=== PATIENT | female | born 1945 | race Caucasian/White ===

== ENCOUNTER 2024-08-06 12:18 | Inpatient (IN) | payer MEDICARE ==
[~2024-08-06] VITALS: Ht 167.6 cm; Wt 66.1 kg
[~2024-08-06 12:18] MED LIST: ATOR1TAB19 PO; ECOT81TA5 PO; METO25TA4 PO
[2024-08-06] MEDS ORDERED: BISACODYL 10 MG SUPP PR PRN (14:25)
[2024-08-06] MEDS ORDERED: MOM 30 ML SUSPENSION UDC PO PRN (14:25)
[2024-08-06] MEDS ORDERED: MAALOX 30 ML SUSP *UDC PO PRN (14:25)
[2024-08-06] MEDS ORDERED: SIMETHICONE 80MG CHEW TAB PO PRN (14:25)
[2024-08-06 15:48] VITALS: BP 137/82; TEMP 96.8; O2SAT 97
[2024-08-06 20:00] VITALS: BP 135/60; TEMP 98.6; O2SAT 80
[2024-08-06] MEDS: SENNOSIDES/DOCUSATE SODIUM 8.6 MG/50MG TAB PO SCH (21:00)
[2024-08-06] MEDS: ACETAMINOPHEN 500 MG TAB PO SCH (21:39)
[2024-08-07 03:15] VITALS: BP 148/67; TEMP 97.8; O2SAT 95
[2024-08-07 07:08] LABS: BASO # 0.0 10^3/uL (0.0-0.2); BASO % 0.1 % (0.0-1.0); EOS # 0.0 10^3/uL (0.0-0.5); EOS % 0.1 % (0.0-3.0); LYMPH # 1.3 10^3/uL (1.5-5.0); LYMPH % 13.0 % (24.0-44.0); MONO # 1.1 10^3/uL (0.0-0.8); MONO % 11.0 % (2.0-8.0); NEUTROPHILS # 7.5 10^3/uL (1.5-8.5); NEUTROPHILS % 75.4 % (36.0-66.0); PLATELET COUNT, AUTOMATED 242 10^3/uL (150-450)
[2024-08-07 08:06] LABS: ALT/SGPT 29.0 U/L (7.0-40); AST/SGOT 53.0 U/L (<34); CALCIUM LEVEL 8.9 MG/DL (8.3-10.6); CARBON DIOXIDE LEVEL 27.0 MMOL/L (20-31); CHLORIDE LEVEL 104.0 MMOL/L (98-107); CREATININE FOR GFR 0.73 MG/DL (0.55-1.30); GLOMERULAR FILTRATION RATE 84.1 (>39); POTASSIUM SERUM 3.5 MMOL/L (3.5-5.1); SODIUM LEVEL 143.0 MMOL/L (136-145)
[2024-08-07] MEDS ORDERED: CHLORASEPTIC SPRAY MT PRN (10:25)
[2024-08-07] MEDS: METOPROLOL TART 12.5 MG PER 1/2 TAB PO SCH (10:45)
[2024-08-07] MEDS: ENOXAPARIN 40 MG/0.4 ML SYRINGE (J1650 PER 10MG) SC SCH (10:46)
[2024-08-07] MEDS: OMEPRAZOLE 20MG CAP PO SCH (10:46)
[2024-08-07] MEDS: ATORVASTATIN 10 MG TAB PO SCH (10:46)
[2024-08-07] MEDS: ASPIRIN 81 MG ENTERIC TABLET PO SCH (10:46)
[2024-08-07] MEDS: BISACODYL 5 MG TAB PO SCH (10:46)
[2024-08-07 12:00] VITALS: BP 129/61; TEMP 97.8; O2SAT 96
[2024-08-07] MEDS: MAGIC MOUTHWASH 5 ML ORAL SYRINGE SSP SCH (12:00)
[2024-08-07] MEDS: NS (Normal Saline) 0.9% 1,000 ML IV ONE (13:37)
[2024-08-07] MEDS: MORPHINE SULFATE TAB IMM. REL. 30 MG PO ONE (13:39)
[2024-08-07] MEDS: NYSTATIN 500,000U/5ML SUSP UDC PO SCH (13:39)
[2024-08-07] MEDS ORDERED: PILL CUTTER 1 EACH XX PRN (14:30)
[2024-08-07 17:03] LABS: KETONE, URINE AUTO RFX NEGATIVE (NEGATIVE); MUCUS, URINE RFX SMALL (NEGATIVE); NITRITE, URINE AUTO RFX NEGATIVE (NEGATIVE); RBC, URINE AUTO RFX 18 /HPF (0-3); SQUAM EPITHELIAL CELL UR AURFX 1 /HPF (0-6); WBC, URINE AUTO RFX 2 /HPF (0-3)
[2024-08-07 17:13] LABS: LEUKOCYTE ESTERASE UR AUTO RFX TRACE (NEGATIVE)
[2024-08-07 19:32] VITALS: BP 133/73; TEMP 97.4; O2SAT 93
[2024-08-07] MEDS: RAMELTEON 8 MG TAB PO SCH (20:32)
[2024-08-08 05:43] VITALS: BP 152/70; TEMP 98.1; O2SAT 97
[2024-08-08] MEDS ORDERED: CEPACOL LOZENGE PO PRN (10:15)
[2024-08-08] MEDS ORDERED: FLUTICASONE PROPIONATE 0.05% NASAL SPRAY 16 GM NARES ONE (10:15)
[2024-08-08] MEDS ORDERED: QUEtiapine FUMARATE 12.5 MG HALF-TAB PO PRN (10:20)
[2024-08-08 12:00] VITALS: BP 101/49; TEMP 97; O2SAT 98
[2024-08-08] MEDS: MORPHINE SULFATE TAB IMM. REL. 30 MG PO PRN (12:30)
[2024-08-08] MEDS: FLUTICASONE PROPIONATE 0.05% NASAL SPRAY 16 GM NARES SCH (12:31)
[2024-08-08 20:00] VITALS: BP 122/56; TEMP 97.5; O2SAT 97
[2024-08-08] MEDS: QUEtiapine FUMARATE 12.5 MG HALF-TAB PO SCH (20:37)
[2024-08-09 04:00] VITALS: BP 129/59; TEMP 97.9; O2SAT 94
[2024-08-09 07:18] LABS: CALCIUM LEVEL 8.9 MG/DL (8.3-10.6); CARBON DIOXIDE LEVEL 26 MMOL/L (20-31); CHLORIDE LEVEL 107 MMOL/L (98-107); CREATININE FOR GFR 0.65 MG/DL (0.55-1.30); GLOMERULAR FILTRATION RATE > 90.0 (>39); POTASSIUM SERUM 4.0 MMOL/L (3.5-5.1); SODIUM LEVEL 142 MMOL/L (136-145)
[2024-08-09 09:54] VITALS: BP 107/52
[2024-08-09 12:00] VITALS: BP 127/58; TEMP 97.6; O2SAT 98
[2024-08-09 20:03] VITALS: BP 123/58; TEMP 97.5; O2SAT 96
[2024-08-10 04:58] VITALS: BP 133/61; TEMP 97.4; O2SAT 95
[2024-08-10 12:00] VITALS: BP 109/55; TEMP 97.5; O2SAT 97
[2024-08-10 20:15] VITALS: BP 129/60; TEMP 97.4; O2SAT 95
[2024-08-11 04:05] VITALS: BP 130/66; TEMP 97.5; O2SAT 95
[2024-08-11 12:00] VITALS: BP 132/58; TEMP 98.3; O2SAT 97
[2024-08-11 15:04] LABS: BASO # 0.0 10^3/uL (0.0-0.2); BASO % 0.5 % (0.0-1.0); EOS # 0.2 10^3/uL (0.0-0.5); EOS % 2.6 % (0.0-3.0); LYMPH # 1.4 10^3/uL (1.5-5.0); LYMPH % 17.9 % (24.0-44.0); MONO # 0.7 10^3/uL (0.0-0.8); MONO % 8.9 % (2.0-8.0); NEUTROPHILS # 5.4 10^3/uL (1.5-8.5); NEUTROPHILS % 68.2 % (36.0-66.0); PLATELET COUNT, AUTOMATED 260 10^3/uL (150-450)
[2024-08-11] MEDS: ACETAMINOPHEN 500 MG TAB PO PRN (15:21)
[2024-08-11 15:50] LABS: ALT/SGPT 37.0 U/L (7.0-40); AST/SGOT 38.0 U/L (<34); CALCIUM LEVEL 8.7 MG/DL (8.3-10.6); CARBON DIOXIDE LEVEL 20.0 MMOL/L (20-31); CHLORIDE LEVEL 109.0 MMOL/L (98-107); CREATININE FOR GFR 0.74 MG/DL (0.55-1.30); GLOMERULAR FILTRATION RATE 82.8 (>39); POTASSIUM SERUM 4.4 MMOL/L (3.5-5.1); SODIUM LEVEL 140.0 MMOL/L (136-145)
[2024-08-11 19:21] VITALS: BP 117/56; TEMP 96.8; O2SAT 96
[2024-08-12 04:33] VITALS: BP 137/65; TEMP 97.5; O2SAT 93
[2024-08-12 07:43] VITALS: BP 122/60; TEMP 97; O2SAT 96
[2024-08-12] MEDS ORDERED: DEXTROMETHORPHAN 60 MG/10 ML SUSP 90 ML BTL PO PRN (10:35)
[2024-08-12 12:00] VITALS: BP 117/59; TEMP 97.4; O2SAT 97
[2024-08-12 19:46] VITALS: BP 124/60; TEMP 97.1; O2SAT 96
[2024-08-13 03:48] VITALS: BP 128/60; TEMP 97.5; O2SAT 94
[2024-08-13 12:00] VITALS: BP 139/64; TEMP 97.3; O2SAT 99
[2024-08-13] MEDS: FLUCONAZOLE 100 MG TAB PO ONE (15:00)
[2024-08-13 20:00] VITALS: BP 132/61; TEMP 98.6; O2SAT 96
[2024-08-14 04:00] VITALS: BP 108/56; TEMP 97.5; O2SAT 96
[2024-08-14] MEDS: FLUCONAZOLE 100 MG TAB PO SCH (07:47)
[2024-08-14 12:00] VITALS: BP 129/61; TEMP 97; O2SAT 100
[2024-08-14 20:00] VITALS: BP 124/60; TEMP 97.3; O2SAT 98
[2024-08-15 04:00] VITALS: BP 118/57; TEMP 97.1; O2SAT 96
[2024-08-15 12:00] VITALS: BP 118/58; TEMP 97.4; O2SAT 97
[2024-08-15 20:00] VITALS: BP 121/59; TEMP 98.1; O2SAT 97
[2024-08-16 04:00] VITALS: BP 113/55; TEMP 98.3; O2SAT 93
[2024-08-16 12:00] VITALS: BP 104/56; TEMP 97; O2SAT 99
[2024-08-16 20:00] VITALS: BP 118/56; TEMP 97.3; O2SAT 97
[2024-08-17 04:00] VITALS: BP 112/54; TEMP 97.4; O2SAT 95
[2024-08-17 12:00] VITALS: BP 103/56; TEMP 97.3; O2SAT 98
[2024-08-17 20:00] VITALS: BP 118/59; TEMP 97.6; O2SAT 97
[2024-08-18] MEDS: ONDANSETRON 4MG ORAL DISINTEGRATING TAB SL PRN (03:41)
[2024-08-18 04:00] VITALS: BP 111/54; TEMP 97.3; O2SAT 97
[2024-08-18 06:30] VITALS: BP 108/55; TEMP 97.2; O2SAT 94
[2024-08-18 09:22] LABS: ALT/SGPT 38.0 U/L (7.0-40); AST/SGOT 22.0 U/L (<34); CALCIUM LEVEL 10.1 MG/DL (8.3-10.6); CARBON DIOXIDE LEVEL 29.0 MMOL/L (20-31); CHLORIDE LEVEL 98.0 MMOL/L (98-107); CREATININE FOR GFR 0.88 MG/DL (0.55-1.30); GLOMERULAR FILTRATION RATE 67.2 (>39); POTASSIUM SERUM 4.5 MMOL/L (3.5-5.1); SODIUM LEVEL 139.0 MMOL/L (136-145)
[2024-08-18 12:12] VITALS: BP 111/53; TEMP 97.2; O2SAT 100
[2024-08-18] MEDS ORDERED: FLUTISP NARES (15:54)
[2024-08-18] MEDS ORDERED: ACET-683 PO (15:54)
[2024-08-18] MEDS ORDERED: ONDA-282 SL (15:54)
[2024-08-18 20:00] VITALS: BP 106/56; TEMP 97.7; O2SAT 98
[2024-08-19 04:00] VITALS: BP 124/53; TEMP 97.2; O2SAT 94
[2024-08-19 08:24] VITALS: BP 109/52
== END 2024-08-19 12:05 | disposition home health service (06) | DRG 560 ==
LOC: M PM&R 15:48
PROVIDERS: ADMIT Physical Medicine & Rehabilitation; ATTEND Physical Medicine & Rehabilitation
DX: S72.142D Displaced intertrochanteric fracture of left femur, subsequent encounter for closed fracture with routine healing (principal); G93.40 Encephalopathy, unspecified; B37.81 Candidal esophagitis; S93.401D Sprain of unspecified ligament of right ankle, subsequent encounter; I10 Essential (primary) hypertension; G47.00 Insomnia, unspecified; M19.90 Unspecified osteoarthritis, unspecified site; Z96.642 Presence of left artificial hip joint; Z74.1 Need for assistance with personal care; Z74.09 Other reduced mobility; R53.83 Other fatigue; K59.00 Constipation, unspecified; R00.0 Tachycardia, unspecified; R33.9 Retention of urine, unspecified; Z79.82 Long term (current) use of aspirin; Z79.899 Other long term (current) drug therapy; Z88.0 Allergy status to penicillin; Z88.5 Allergy status to narcotic agent; Z86.73 Personal history of transient ischemic attack (TIA), and cerebral infarction without residual deficits

== ENCOUNTER → 2024-08-28 | Outpatient (CLI) | payer MEDICARE ==
[~2024-08-28] MED LIST changes: +ACET-683 PO; +FLUTISP NARES; +ONDA-282 SL
[2024-08-28 11:47] LABS: BASO # 0.0 10^3/uL (0.0-0.2); BASO % 0.6 % (0.0-1.0); EOS # 0.1 10^3/uL (0.0-0.5); EOS % 0.9 % (0.0-3.0); LYMPH # 1.1 10^3/uL (1.5-5.0); LYMPH % 16.2 % (24.0-44.0); MONO # 0.5 10^3/uL (0.0-0.8); MONO % 7.2 % (2.0-8.0); NEUTROPHILS # 5.2 10^3/uL (1.5-8.5); NEUTROPHILS % 75.0 % (36.0-66.0); PLATELET COUNT, AUTOMATED 373 10^3/uL (150-450)
[2024-08-28 11:53] LABS: ERYTHROCYTE SEDIMENTATION RATE 98 mm/hr (0-30)
== END ==
LOC: M LAB 11:06
PROVIDERS: ATTEND Neuromusculoskeletal Medicine, Sports Medicine
DX: Z47.89 Encounter for other orthopedic aftercare (principal); Z79.899 Other long term (current) drug therapy